=== PATIENT | female | born 1995 | race Caucasian/White ===

== ENCOUNTER 2024-10-28 12:15 | Emergency (ER) | payer OTHER, SELFPAY ==
--- NOTE | 2024-10-28 12:18 | ED.EAR ---
HPI - Ear Problem General Chief complaint: Ear Stated complaint: ears/throat Time Seen by Provider: 10/28/24 12:32 Source: patient and RN notes reviewed Mode of arrival: ambulatory Limitations: no limitations History of Present Illness HPI Narrative: 28-year-old female who is 14 weeks presents with concern for right ear pain, drainage. Reports right-sided sore throat. Denies fever. Denies drainage from the ears. Denies cough MD Complaint: ear pain Related Data Allergies Allergy/AdvReac Type Severity Reaction Status Date / Time No Known Allergies Allergy Verified 10/28/24 12:32 Review of Systems Review of Systems: CONSTITUTIONAL: Denies malaise, chills, sweats, or fever. EYES: Denies visual changes, redness, or discharge. ENT: Denies congestion, sinus pain. Reports right ear pain, right-sided sore throat, postnasal drainage CARDIOVASCULAR: Denies chest pain, palpitations, or edema. RESPIRATORY: Denies cough. Denies dyspnea. GASTROINTESTINAL: Denies abdominal pain, nausea, vomiting, diarrhea SKIN: Denies rash or itching. MUSCULOSKELETAL: Denies myalgia. NEUROLOGIC: Denies headache. All systems reviewed & are unremarkable except as noted in HPI and below PMFSH Comments At time of signature, agree with nursing past medical, surgical, social and family history. There is no relevant family history pertinent to the presenting complaint Exam Narrative: GENERAL: Well-appearing, well-nourished, and in no acute distress. HEAD: Normocephalic EYES: PERRLA, conjunctivae clear ENT: Nares clear, turbinates edematous, clear discharge. Mucous membranes moist. TM pearly breen with dull light reflex bilaterally; no tragal tenderness. Oropharynx not erythematous without lesions. Tonsils not enlarged and without exudate, no drooling, no hoarseness, no trismus, uvula midline. NECK: Supple. No lymphadenopathy CHEST: Clear to auscultation, breath sounds equal. No wheezing, rhonchi, rales, or stridor. No respiratory distress, speaks in full sentences. HEART: Regular rate and rhythm. No murmur heard. SKIN: Warm, dry, no rash. NEURO: Alert and oriented x3. PSYCH: Normal mood and affect Course Course Emergency Course: Patient is aware of diagnosis, understands and agrees to treatment plan. Anticipatory guidance given. Patient agrees to follow-up as directed and is aware of reasons to seek care at the emergency department. Portions of this record may have been created with voice recognition software Level of Care: [facility] Visit Vital Signs Vital signs: Reviewed. Medical Decision Making MDM Narrative Medical decision making narrative: I evaluated this in the [facility]. History is obtained from patient who is an independent historian and physical exam was performed.? Available medical records were reviewed. ? Exam findings and relevant testing show no acute concerns or changes; patient is non-toxic appearing and is in no distress. Differential diagnosis considered: Siddiqui virus, strep pharyngitis, allergic rhinitis, upper respiratory tract infection, sinusitis, rhinosinusitis, nasopharyngitis. viral pharyngitis, otitis media, otitis externa, otitis effusion, cerumen impaction, foreign body. Exam findings show no acute concerns or changes; patient is non-toxic appearing and is in no distress. Patient is appropriate for outpatient treatment and follow-up. ? Differential diagnosis and treatment plan were discussed with the patient. Patient agrees with discussion and after shared medical decision making agrees with plan of care. All questions were answered to the patient's satisfaction. Patient is appropriate for outpatient treatment and follow-up. Critical Care Time Critical Care Time Critical Care Time: No Discharge Plan Discharge Clinical Impression: Upper respiratory infection Patient Disposition: Home, Self-Care Condition: Stable Instructions: Upper Respiratory Infection (ED) Additional Instructions: Your rapid strep swab was negative today at [facility]. A throat culture will be sent to the laboratory for further testing. If the test is positive, you will receive a phone call within 48 hours and an appropriate antibiotic will be initiated at that time. Your symptoms are likely due to a viral illness, which is not treated with antibiotics. Viral symptoms can be present for up to a few weeks. -take Tylenol per package directions for fever or pain. -Antihistamine medication such as Benadryl at night and Zyrtec during the day can help improve symptoms. -Eat and drink things that are easy to swallow, like tea or soup, or popsicles to suck on. -Oral rinses such as: Salt water gargles and/or may use topical anesthetic (eg. Chloraseptic spray) or lozenges to relieve dryness or throat pain). -Frequent hand washing or hand fish machine feeder is one of the best ways to prevent spread of infection. -Follow up with primary care provider in 2-3 days if condition is not improving; or seek ER visit if you have trouble breathing, cannot drink enough fluids, have muffled voice, difficulty opening your mouth, or severe swelling. Prescriptions: New fluticasone propionate [Flonase Allergy Relief] 50 mcg/actuation spray,suspension 2 spray NASAL DAILY 14 Days Qty: 15.8 0RF Rx Instructions: administer into each nostril Follow-up/Referrals: UNKNOWN,DOCTOR [Non-Staff] - Stand Alone Forms: Work/School Release IP Time of Disposition: 12:52
[2024-10-28 12:22] VITALS: BP 128/80; PULSE 107; RESP 16; TEMP 37.3; O2SAT 100
[2024-10-28 13:00] LABS: EDSTREPNEGPOS1 Negative (Negative)
== END 2024-10-28 12:57 | disposition home or self-care (01) ==
PROVIDERS: Emergency Provider Nurse Practitioner
DX: O99.512 Diseases of the respiratory system complicating pregnancy, second trimester (principal); Z3A.14 14 weeks gestation of pregnancy; J06.9 Acute upper respiratory infection, unspecified
CPT/HCPCS: 87081; 87880; 99203; G0463

== ENCOUNTER 2024-12-13 12:52 | Emergency (ER) | payer OTHER, SELFPAY ==
--- NOTE | 2024-12-13 12:56 | ED_ITS ---
HPI - URI/Sore Throat General Chief Complaint: Upper Respiratory Infection Stated Complaint: throat Time Seen by Provider: 12/13/24 12:56 Source: patient, RN notes reviewed and old records reviewed Mode of arrival: ambulatory Limitations: no limitations History of Present Illness HPI Narrative: 29 year old female presents to [facility] care with complaints of sore throat, hoarseness,dry cough, fevers, body aches, chills with decreased appetite since Thursday. Patient reports that she is 20 weeks has taken Tylenol but no other OTC medications since she didn't known what else is safe with . Patient reports that son and spouse are also ill. MD elicited complaint: fever, cough, sore throat and other (body aches) Onset (ago): day(s) (4) Severity: moderate Able to tolerate fluids by mouth: Yes Treatments prior to arrival: acetaminophen Related Data Allergies Allergy/AdvReac Type Severity Reaction Status Date / Time No Known Allergies Allergy Verified 10/28/24 12:32 Review of Systems Review of Systems: CONSTITUTIONAL:Reports malaise, chills, sweats, or fever. EYES: Denies visual changes, redness, or discharge. ENT: Reports rhinorrhea, congestion, sinus pain,no otalgia and positive for sore throat and hoarseness. CARDIOVASCULAR: Denies chest pain, palpitations, or edema. RESPIRATORY: Reports dry cough.? Denies dyspnea. GASTROINTESTINAL: Denies abdominal pain, some nausea, no vomiting, no diarrhea, decreased appetite SKIN: Denies rash or itching. MUSCULOSKELETAL: reports myalgia. NEUROLOGIC: Denies headache. All systems reviewed & are unremarkable except as noted in HPI and below PMFSH Past Medical History Medical History (Updated 12/14/24 @ 11:06 by Valerie Christensen NP) 20 weeks gestation of Social History Social History (Updated 12/14/24 @ 11:08 by Valerie Christensen NP) Smoking status: Unknown if ever smoked Alcohol intake: former Alcohol use details: is former social alcohol use Substance use type: does not use Living arrangements: with family Gender identity (if verbalized by the patient): Female Comments At time of signature, agree with nursing past medical, surgical, social and family history. There is no relevant family history pertinent to the presenting complaint Exam Narrative: GENERAL: Well-appearing, well-nourished, and in no acute distress. HEAD: Normocephalic EYES: PERRLA, conjunctivae clear ENT: Nares clear, turbinates edematous and erythematous, clear discharge. Mucous membranes moist. TM pearly breen with dull light reflex bilaterally; no tragal tenderness. Oropharynx erythematous without lesions. Tonsils not enlarged and without exudate, no drooling, + hoarseness, no trismus, uvula midline.post nasal drainage NECK: Supple. No lymphadenopathy CHEST: Clear to auscultation, breath sounds equal. No wheezing, rhonchi, rales, or stridor. No respiratory distress, speaks in full sentences.dry couchSAO2 99% on room air HEART: Regular rate and rhythm. No murmur heard. SKIN: Warm, dry, no rash. NEURO: Alert and oriented x3. PSYCH: Normal mood and affect Course Course Emergency Course: Patient is aware of diagnosis, understands and agrees to treatment plan.? Anticipatory guidance given.? Patient agrees to follow-up as directed and is aware of reasons to seek care at the emergency department. Portions of this record may have been created with voice recognition software Level of Care: Express Care Visit Vital Signs Vital signs: Vital Signs Temperature 37.6 C H 12/13/24 13:00 Pulse Rate 115 H 12/13/24 13:00 Respiratory Rate 20 12/13/24 13:00 Blood Pressure 116/76 12/13/24 13:00 Pulse Oximetry 99 12/13/24 13:00 Oxygen Delivery Room Air 12/13/24 13:00 Temperature 37.6 C H 12/13/24 13:00 Pulse Rate 115 H 12/13/24 13:00 Respiratory Rate 20 12/13/24 13:00 Blood Pressure 116/76 12/13/24 13:00 Pulse Oximetry 99 12/13/24 13:00 Oxygen Delivery Room Air 12/13/24 13:00 Reviewed MDM - URI/Sore Throat MDM Narrative Medical decision making narrative: Differential diagnosis considered: Siddiqui virus, strep pharyngitis, allergic rhinitis, upper respiratory tract infection, sinusitis, rhinosinusitis, nasopharyngitis. viral pharyngitis, otitis media, otitis externa, pneumonia, bronchitis, viral cough syndrome, viral syndrome, and influenza.? Exam findings show no acute concerns or changes; patient is non-toxic appearing and is in no distress.? Patient is appropriate for outpatient treatment and follow-up. Differential Diagnosis Differential diagnosis: Likely upper respiratory infection, sinusitis, viral infection, influenza, pharyngitis and other (strep pharyngitis, COVID) Lab Data Attestation: I reviewed the patient's lab results. Lab results narrative: strep screen negative, culture sent, Influenza A negative, Influenza B negative, COVID antigen positive Labs: Lab Results 12/13/24 Range/Units 13:06 POC Influenza A Ag Negative (Negative) POC Influenza B Ag Negative (Negative) POC SARS CoV-2 Ag Positive (Negative) POC Grp A Strep Screen Negative (Negative) Critical Care Time Critical Care Time Critical Care Time: No Discharge Plan Discharge Clinical Impression: COVID-19 Patient Disposition: Home, Self-Care Condition: Stable Instructions: Antibiotic Form, How to Recover from COVID-19 at Home (ED) Additional Instructions: Increase fluids especially juices and water [id number] cough and cold medicine of your choice for your symptoms Zyrtec or Claritin daily for any congestion Tylenol only for pain or any fevers heat to the face 20-30 minutes 4-6 times a day for pain Salt water gargles, throat lozenges or throat sprays as desired Please notify your NEGATIVE RESTORER that you are COVID positive Must quarantine If your symptoms persist, change or worsen significantly before you can contact your personal physician then please, without delay, go to the emergency department for further evaluation. Follow-up with PCP in 7-10 days or sooner if needed COVID-19 DISCHARGE The following recommendations have been made by the CDC and local Health Departments, regarding COVID-19: Those individuals with mild cases of COVID-19 can generally be discontinued from isolation, 5 days AFTER the onset of symptoms AND the resolution of fever for 24hrs (without the use of fever-reducing medications) Those individuals who were asymptomatic, and tested positive, are discontinued from isolation 10 days AFTER their first positive COVID-19 test Those individuals with SEVERE to CRITICAL illness or immunocompromised diseases may require up to 20 days of home isolation or hospitalization Majority of mild to moderate cases can be treated at home, without hospitalization or prescription medications You do not need a negative test result to return to work/school, assuming the above recommendations have been met and you are not symptomatic. At this time, return to work/school notes will not be provided. Guidelines from the local Health Department, CDC, and workplace are expected to be followed. All individuals in the household need to remained quarantined for up to 14 days if asymptomatic OR 10 days after the start of symptoms. Everyone in the home DOES NOT require testing, they are presumed positive and should quarantine as directed. Treating symptoms for mild to moderate cases may include: Tylenol, Flonase/nasal spray, OTC cold/flu medications recommended from your provider or any necessary prescription medications provided at your visit or from your PCP IF YOU TESTED NEGATIVE If you are symptomatic with reason to believe you have COVID-19, there is a high possibility your rapid test may not have detected the virus. Rapid testing is dependent on timing and viral load and may have a false- negative reading You should follow appropriate guidelines regarding quarantine, hand washing, mask wearing, and social distancing You may be sent for PCR testing as an outpatient to the [facility] site Common Adult Symptoms: Fever/chills Cough Shortness of breath Fatigue, muscle aches Headache Loss of taste/smell Sore throat, congestion, runny nose GI symptoms (nausea, vomiting, diarrhea) Common Pediatric Symptoms Cough Fever GI symptoms (diarrhea, upset stomach, nausea, vomiting) Symptoms may differ in severity however, most cases do not require hospitalization. WHEN TO SEEK ER EVALUATION/TREATMENT Severe/persistent shortness of breath or difficulty breathing Elevated, persistent fevers without resolution with fever-reducing medications Chest pain Extreme fatigue/lethargy Complications of pre-existing disease strep culture sent if positive you will be notified and appropriate antibiotic will be ordered Patient Language: Congolese Prescriptions: No Action fluticasone propionate [Flonase Allergy Relief] 50 mcg/actuation spray,suspension 2 spray NASAL DAILY 14 Days Qty: 15.8 0RF Rx Instructions: administer into each nostril Follow-up/Referrals: PHYSICIAN,SENIOR OPERATIONS ANALYST [Primary Care Provider] - Time of Disposition: 13:33 Quality [place] Coma Scale Eyes: Open Verbal: Oriented and Alert Motor: Follows Commands Kendy Coma Total Score: 15
[2024-12-13 13:00] VITALS: BP 116/76; PULSE 115; RESP 20; TEMP 37.6; O2SAT 99
[2024-12-13 13:27] LABS: EDCOVIDSCREEN Positive (Negative); EDINFLUASCREEN Negative (Negative); EDINFLUBSCREEN Negative (Negative); EDSTREPNEGPOS1 Negative (Negative)
== END 2024-12-13 13:35 | disposition home or self-care (01) ==
PROVIDERS: Emergency Provider Registered Nurse
DX: O98.512 Other viral diseases complicating pregnancy, second trimester (principal); U07.1 COVID-19; Z3A.22 22 weeks gestation of pregnancy
CPT/HCPCS: 87081; 87426; 87804; 87880; 99213; G0463

== ENCOUNTER 2025-04-15 22:50 | Observation (INO) | payer OTHER, SELFPAY ==
[2025-04-16 01:27] VITALS: BMI 37.8
--- OUTSIDE RECORDS SUMMARY | 2025-04-16 01:27 | XMS_ITS | Clinical Summary ---
Author Organization [facility] Address [address] [place] [address] Care Team Providers Care Paper Roll Machine Operator Name Role Phone No, Physician Primary Care Provider [phone] Derrick Abdalla MD Unavailable Allergies Active Allergy Reactions Criticality Noted Date Comments Isopropyl Alcohol Hives Medium 11/25/2017 Medications docusate sodium (COLACE) 100 mg capsuleIndicati ons:constipatio n Take 100 mg by mouth 2 (two) times a day Active HYDROcodone-vikas taminophen (NORCO) 5-325 mg per tabletIndicatio ns:Pain Take 1 tablet by mouth every 4 (four) hours as needed for pain 20 tablet 1 Active Additional Information Patient not taking.Reported on 10/15/2022 ibuprofen (ADVIL,MOTRIN) 600 mg tabletIndicatio ns:Cramps Take 1 tablet (600 mg total) by mouth every 6 (six) hours as needed for pain 30 tablet 1 1 Active Additional Information Patient not taking.Reported on 10/15/2022 etonogestreL-et hinyl estradioL (NUVARING, ELURYNG) 0.12-0.015 mg/24 hr vaginal ring 2 Active Active Problems Problem Noted Date Diagnosed Date Mild intermittent asthma 03/16/2021 Acute gastroenteritis 04/16/2019 Multiple insect bites 01/01/2019 Mixed anxiety and depressive disorder 01/21/2017 Immunizations Immunization Administration Dates Next Due Influenza, Unspecified 08/27/2021 MMR 11/10/2021 Surgical History Surgery Date Site/Laterality Comments TONSILLECTOMY MYRINGOTOMY W/ TUBES Medical History Medical History Date Comments UTI (urinary tract infection) Asthma last attack over a year ago Mental disorder anxiety and depr ession not on any meds Social History Tobacco Use Types Packs/Day Years Used Date Smoking Tobacco: Former Smokeless Tobacco: Never Tobacco Cessation:Counseling Given: Not Answered Alcohol Use Standard Drinks/Week Comments Yes 0 (1 standard drink = 0.6 oz pur e alcohol) SOCIALLY AUDIT-C Answer Date Recorded Q1: How often do you have a drink containing alc ohol? 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 Gender Identity Not on file Sexual Orientation Not on file Obstetrics History Para Term AB IAB SAB Ectopic Multiple Livin g Live Births 1 1 1 0 1 1 Date Outcome GA Total Labor Labor/2nd/3rd Weight Sex Type Anes PTL Winnie A1 A5 Name Clin 2020 Term 39w 4d 7h 13m 6h 32m/0h 39m/0h 02m 3.895 kg (8 lb 9.4 oz) M Vag-S pont Epidur al N Livin g 8 9 RITTE R,BOY MARJORIE ANY Hardma n, Derrick cameron MD Complications:None Delivery Location:[facility] ([facility]) Last Filed Vital Signs Vital Sign Reading Time Taken Comments Blood Pressure 106/64 02/04/2024 2:59 PM CDT Pulse 105 02/04/2024 2:59 PM CDT Temperature 36.6 C (97.8 F) 02/04/2024 2:59 PM CDT Respiratory Rate 16 02/04/2024 2:59 PM CDT Oxygen Saturation 99% 02/04/2024 2:59 PM CDT Inhaled Oxygen Concentration - - Weight 61.2 kg (135 lb) 02/04/2024 2:59 PM CDT Height 162.6 cm (5' 4) 02/04/2024 2:59 PM CDT Body Mass Index 23.17 02/04/2024 2:59 PM CDT Plan of Treatment Health Maintenance Due Date Last Done Comments Cervical Cancer Screening 1997 Depression Screening 1997 Hepatitis C Screening 1997 DTaP/Tdap/Td Vaccine (1 - Tdap) 2008 Varicella Vaccines (1 of 2 - 13+ 2-dose series) 2010 Hepatitis B Screening 2015 Regular Well Visit/Exam 18-64 2015 Pneumococcal vaccine <65 (1 of 2 - PCV) 2016 Influenza Vaccine (Season Ended) 2025 08/27/20 21 HPV Vaccines Aged Out No longer eligi ble based on patient's age to complete this topic Insurance [facility] CHOICE PLUS [facility] HMO/PPO Address: [facility] [address] [place] [address] Advance Directives For more information, please contact: [phone] * Full Code (Latest Code Status on File) Date Activated Date Inactivated Comments 11/09/2021 1:03 AM 11/10/2021 7:23 PM * Full Code Date Activated Date Inactivated Comments 11/08/2021 5:52 AM 11/09/2021 1:03 AM Full CPR i n case of cardiopulmonary arrest Care Teams Paper Roll Machine Operator Relationship Specialty Start Date End Date No, Physician PCP - General 03/16/21 Derrick Abdalla MD [address] [address] [address] Family Counselor Obstetrics and Gynecology 11/10/21
--- OUTSIDE RECORDS SUMMARY | 2025-04-16 01:27 | XMS_ITS | Referral Summary ---
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 Gender Identity Not on file Sexual Orientation Not on file Last Filed Vital Signs Vital Sign Reading [...] 02/04/2024 2:59 PM CDT Plan of Treatment Not on file Insurance [facility] CHOICE PLUS Advance Directives For more information, please contact: [phone] * Full Code (Latest Code Status on File) Date Activated Date Inactivated Comments 11/09/2021 1:03 AM 11/10/2021 7:23 PM * Full Code Date Activated Date Inactivated Comments 11/08/2021 5:52 AM 11/09/2021 1:03 AM Full CPR i n case of cardiopulmonary arrest Care Teams Audio Recording Engineer Relationship Specialty Start Date End Date No, Physician PCP - General 03/16/21 Derrick Abdalla MD [address] [facility] [address] [address] [address] [address] Catalytic Converter Operator Obstetrics and Gynecology 11/10/21
--- NOTE | 2025-04-21 11:52 | PM.OBTRLD ---
OB - Triage/Final Diagnosis Visit Information Comments/Additional reasons for admission: I have assessed the risk for this patient, Andie Morrison, and determined that she would benefit from observation care. Final Diagnosis (1) Threatened labor: Code(s): O47.9 - False labor, unspecified Status: Acute
== END 2025-04-16 01:45 | disposition home or self-care (01) ==
PROVIDERS: Admitting Provider Obstetrics & Gynecology; Visit Provider Obstetrics & Gynecology
DX: O47.1 False labor at or after 37 completed weeks of gestation (principal); Z3A.37 37 weeks gestation of pregnancy
CPT/HCPCS: G0378; G0379

== ENCOUNTER 2025-04-19 16:06 | Outpatient (CLI) | payer OTHER, SELFPAY ==
[2025-04-19 17:02] VITALS: BP 118/77; PULSE 104
--- NOTE | 2025-04-19 17:02 | PC.NURSE ---
Dr. Grady informed ROM plus was negative, SVE 1 cm externally- didn't try to reach internal os, thick, -3 station. FHT's with reactive NST. OK to discharge to home.
--- OUTSIDE RECORDS SUMMARY | 2025-04-19 17:12 | XMS_ITS | Clinical Summary ---
Author Organization [facility] Address [address] [place] [address] Care Team Providers Care Actuarial Consultant Name Role Phone Provider, None Primary Care Provider Unavailabl e Provider, None Unavailable Unavailable Allergies Active Allergy Reactions Criticality Noted Date Comments Isopropyl Alcohol Hives 11/25/2017 Medications No known medications Active Problems No known active problems Immunizations Immunization Administration Dates Next Due Influenza Vaccine, Quadrivalent, PF 08/27/2021 Social History Tobacco Use Types Packs/Day Years Used Date Smoking Tobacco: Former Cigarettes Smokeless Tobacco: Never Alcohol Use Standard Drinks/Week Comments Not Currently 0 (1 standard drink = 0.6 oz pur e alcohol) Sexually Active Control Partners Comments Yes Male Comments Unknown Sex and Gender Information Value Date Recorded Sex Assigned at Not on file Legal Sex Female 3:29 PM CUSTOMS AGENT Gender Identity Not on file Sexual Orientation Not on file Last Filed Vital Signs Vital Sign Reading Time Taken Comments Blood Pressure 102/64 08/27/2021 9:20 AM CDT Pulse 119 08/27/2021 9:20 AM CDT Temperature 36.4 C (97.5 F) 08/27/2021 9:20 AM CDT Respiratory Rate 18 08/27/2021 9:20 AM CDT Oxygen Saturation 100% 08/27/2021 9:20 AM CDT Inhaled Oxygen Concentration - - Weight 65.8 kg (145 lb) 11/25/2017 7:07 PM CUSTOMS AGENT Height 162.6 cm (5' 4) 11/25/2017 7:07 PM CUSTOMS AGENT Body Mass Index 24.89 11/25/2017 7:07 PM CUSTOMS AGENT Plan of Treatment Health Maintenance Due Date Last Done Comments Hepatitis C Virus (HCV) Screening 1997 TdaP Immunization 1997 Hepatitis B Immunization (1 of 3 - 19+ 3-dose series) 2016 Pap Smear 2018 Influenza Immunization (#1) 2024 08/27/2021 SARS-COV-2 Immunization (1 - 2023- season) 2024 Respiratory Syncytial Virus (RSV) Immunization (Adult) (1 - 1-dose 75+ series) 2072 Meningococcal Immunization (ACWY) Aged Out No longer eligible based on patient's age to complete this topic Pneumococcal Immunization Combined Aged Out No longer eligible based on patient's age to complete this topic Rotavirus Immunization Aged Out No lo nger eligible based on patient's age to complete this topic Insurance [facility] MEDICAID [place] Care Teams Actuarial Consultant Relationship Specialty Start Date End Date Provider, None [place] PCP - General 12/08/24 Provider, None [place] 12/08/24
--- OUTSIDE RECORDS SUMMARY | 2025-04-19 17:12 | XMS_ITS | Clinical Summary ---
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 Gender Identity Not on file Sexual Orientation [...] n, Derrick cameron MD Complications:None Delivery Location:This [facility] ([facility]) Last Filed Vital Signs [...] patient's age to complete this topic Insurance [facility] CHOICE PLUS [facility] H[facility]/PPO Address: [facility] [address] [place] [address] Advance Directives For more information, please contact: [phone] * Full Code (Latest Code Status on File) Date Activated Date Inactivated Comments 11/09/2021 1:03 AM 11/10/2021 7:23 PM * Full Code Date Activated Date Inactivated Comments 11/08/2021 5:52 AM 11/09/2021 1:03 AM Full CPR i n case of cardiopulmonary arrest Care Teams Bottle And Glass Inspector Relationship Specialty Start Date End Date No, Physician PCP - General 03/16/21 Derrick Abdalla MD 4 [facility] [address] TONEY B [address] [address] Printing Plate Maker Obstetrics and Gynecology 11/10/21
--- OUTSIDE RECORDS SUMMARY | 2025-04-19 17:12 | XMS_ITS | Clinical Summary ---
Author Organization [facility] Address [address] [place] [address] Care Team Providers Care Rn Plastics Name Role Phone Unavailable Primary Care Provider Unavailabl e Source Comments [facility],non-owned Affiliates and Associated Physician Practices is amultiple site organization consisting of ambulatory clinics and hospital sitesin [place], [place], [place] and [place]. This disclosure is being madepursuant to the Care Everywhere program and may not contain all information available regarding this patient. Last updated 18.[facility] Allergies No known active allergies Encounters Date Type Department Care Team Description 04/14/2025 8:43 AM CDT - 04/14/2025 11:59 PM CDT Hospital Encounter Replaced by [facility] [address] [place] [id number] Lit Matthew DO MODEL HOME SALES GREETER Discharge Disposition: Home or Self Care 04/05/2025 10:20 AM CDT - 04/05/2025 11:59 PM CDT Hospital Encounter Replaced by [facility] [address] [place] [id number] Kevin Pollock MD Discharge Disposition: Home or Self Care 03/17/2025 8:48 AM CDT - 03/17/2025 11:59 PM CDT Hospital Encounter Replaced by [facility] [address] [place] [phone] James Swartz MD Discharge Disposition: Home or Self Care from Last 3 Months Social History Tobacco Use Types Packs/Day Years Used Date Smoking Tobacco: Never Assessed Estimated Date of Delivery Comme nts Yes 04/29/2025 Based on Ultraso und Sex and Gender Information Value Date Recorded Sex Assigned at Not on file Legal Sex Female 9:06 AM CDT Gender Identity Not on file Sexual Orientation Not on file Last Filed Vital Signs Vital Sign Reading Time Taken Comments Blood Pressure 120/82 04/14/2025 10:14 AM CDT Pulse 106 04/14/2025 10:14 AM CDT Temperature - - Respiratory Rate - - Oxygen Saturation - - Inhaled Oxygen Concentration - - Weight - - Height - - Body Mass Index - - Plan of Treatment Health Maintenance Due Date Last Done Comments PAP SMEAR 1997 HIV SCREENING 2012 HEPATITIS C SCREENING 12/03/2015 DTAP/TDAP/TD VACCINES (1 - Tdap) 2016 HEPATITIS B VACCINE (1 of 3 - 19+ 3-dose series) 2016 COVID-19 VACCINE ( - 2023-2 5 season) 2024 DEPRESSION SCREENING 11/23/2024 OB-ONE HOUR GLUCOSE 01/21/2025 OB-RHOGAM INJECTION 02/04/2025 OB-GROUP B STREP SCREEN 03/25/2025 INFLUENZA VACCINE (Season Ended) 2025 ZOSTER VACCINE (1 of 2) 2047 OB-TDAP CURRENT Completed 03/15/2025 HIB VACCINE Aged Out No longer eligi ble based on patient's age to complete this topic HPV VACCINE Aged Out No longer eligi ble based on patient's age to complete this topic MENINGOCOCCAL (Group B) VACC INE SHARED DECISION-MAKING Aged Out No longer eligibl e based on patient's age to complete this topic MENINGOCOCCAL GROUPS A/C/Y/W VACCINE Aged Out No longer eligible b ased on patient's age to complete this topic PNEUMOCOCCAL VACCINE Aged Out No long er eligible based on patient's age to complete this topic Respiratory Syncytial Virus (RSV) Vaccine Pt: or over 60 yrs (No Doses Required) Completed Procedures Procedure Name Priority Date/Time Associated Diagnosis Comments SONOGRAM - COMPLETE Routine 04/14/2025 9 :13 AM CDT Large for dates affecting management of mother, third trimester, other fetus (HCC) 37 weeks gestation of (HCC) Encounter for screening for macrosomia (HCC) SONOGRAM - COMPLETE Routine 04/05/2025 1 0:18 AM CDT Large for dates affecting management of mother, third trimester, other fetus (HCC) 36 weeks gestation of (HCC) Encounter for screening for macrosomia (HCC) SONOGRAM - COMPLETE Routine 03/17/2025 8 :52 AM CDT Large for dates affecting management of mother, third trimester, other fetus (HCC) with 33 completed weeks gestation (HCC) Encounter for ultrasound to assess growth (HCC) from Last 3 Months Results * SONOGRAM - COMPLETE (04/14/2025 9:13 AM CDT) Only the most recent of3 resultswithin the time period is included. Linked Results Indication ======== Class I obesity, Incomplete anatomy screen LGA fetus, 1-hr GCT = 122 mg/dL on 01/18/2025 Declined genetic testing History ====== OB History 2. Para 1 T1L1 1. live 2020. Gest. age 39 w + 5 d. Sex of child: male Maternal Assessment Physical Exam Height 163 cm, 5 ft 4 in. Weight 99 kg, 219 lb. Initial weight 88 kg, 194 lb. BMI 37.59 kg/m . Initial BMI 33.30 kg/m . Weight gain 11 kg, 25 lb Method ====== Transabdominal ultrasound. View: Suboptimal view: limited by late gestational age ========= [place] . Number of fetuses: 1 Dating ====== Date Details Gest. age JOSÉ MIGUEL Stated JOSÉ MIGUEL 37 w + 6 d 04/29/2025 Previous U/S 10/11/2024 GA, GA 11 w + 3 d 37 w + 6 d 04/29/2025 U/S 04/14/2025 based upon AC, BPD, Femur, HC 38 w + 4 d 04/24/2025 Assigned dating based on ultrasound (GA), selected on 03/17/2025 37 w + 6 d 04/29/2025 General Evaluation Cardiac activity present. FHR 145 bpm. Presentation: cephalic Placenta: Placental site: fundal no previa Umbilical cord: Cord vessels: 3 vessel cord. Insertion site: normal insertion Amniotic fluid: Amount of AF: normal. MVP 7.9 cm. NATALIE 18.2 cm. Q1 4.6 cm, Q2 2.5 cm, Q3 7.9 cm, Q4 3.2 cm Biometry BPD 90.4 mm 36w 4d 38% Hadlock HC 334.2 mm 38w 1d 37% Hadlock AC 374.4 mm 41w 3d >99% Hadlock Femur 74.7 mm 38w 1d 62% Hadlock Humerus 69.3 mm -/- >99% Cheng HC / AC 0.89 Weight Calculation: EFW 3,869 g 94% Hadlock EFW (lb,oz) 8 lb 8 oz EFW by Hadlock ([id number]) LGA Growth Overview Exam date GA BPD (mm) HC (mm) AC (mm) FL (mm) HL (mm) EFW (g) 03/17/2025 33w 6d 82 22% 311.3 38% 328.7 99% 69.3 83% 61.9 96% 2776 92% 04/14/2025 37w 6d 90.4 38% 334.2 37% 374.4 >99% 74.7 62% 69.3 >99% 3869 94% Anatomy The following structures appear normal: Abdomen Stomach. Kidneys. Bladder. The following structures could not be adequately visualized: Head / Neck Lateral ventricles. Midline falx. Heart / Thorax 4-chamber view. 3-vessel view. 6-cfmvlz-fetmdch view. Aortic arch view. Bicaval view. Great vessels. Right lung. Left lung. Abdomen Genitals. Extremities / Skeleton Right hand. Left arm. Feet. Left leg. The following structures were documented previously: Head / Neck Cranium. Choroid plexus. Cavum septi pellucidi. Cerebellum. Cisterna magna. Thalami. Nuchal fold. Face Lips. Profile. Nose. Nasal bone. Orbits. Heart / Thorax RVOT view. LVOT view. Situs. Ductal arch view. Diaphragm. Abdomen Cord insertion. Bowel. Spine Cervical spine. Thoracic spine. Lumbar spine. Sacral spine. Extremities / Skeleton Right arm. Left hand. Right leg. Biophysical Profile 2: breathing movements 2: Gross body movements 2: tone 2: Amniotic fluid volume NST: reactive 10/10 Biophysical profile score Non Stress Test NST interpretation: reactive. Test duration 20 min. Baseline FHR 150 bpm. Baseline variability: moderate. Accelerations: present. Decelerations: absent. Uterine activity: absent Impression ========= Here today for interval growth due to suspected LGA and antental testing due to increased BMI. Single, live, intrauterine at 37w 6d The growth is LGA. The amniotic fluid volume is normal. Normal appearing fundal placenta. The biophysical profile is reassuring /10. No major malformations noted. But the anatomy remains suboptimal due to advanced gestational age and positioning. Comment ======== The biometry showing good interval growth in the estimated weight is suspected LGA. This is most likely constitutional due to the fact that she had negative glucose screen but GDM can not be ruled out with certainty. Overall reassuring status BPP 10/10 with normal amniotic fluid volume. Attempt to complete the anatomical survey showed no gross abnormalities however certain structures remains suboptimally visualized due to advanced gestation positioning which limited the overall study. Both ultrasound and screening/testing have their limitations in detecting all congenital anomalies and chromosomal abnormalities/inh erited disorders or genetic syndromes. Follow-up ======== To continue weekly testing until delivery. Labor and preeclampsia precautions along with kick counts. Thank you for allowing us to partake in your patient's care. Coding ====== Procedures 51187: [place] [address]: Biophysical Profile W NST Yohobuy PACS Anatomical Region Laterality Modality Other 04/14/2025 9:13 AM CDT Venu Trinh MD [facility] ORDERABLES Edited Result - Final from Last 3 Months Insurance [facility]
--- OUTSIDE RECORDS SUMMARY | 2025-04-19 17:12 | XMS_ITS | Referral Summary ---
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 Gender Identity Not on file Sexual Orientation [...] Plan of Treatment Not on file Insurance [facility] CHOICE PLUS Advance Directives For more information, please contact: [phone] * Full Code (Latest Code Status on File) Date Activated Date Inactivated Comments 11/09/2021 1:03 AM 11/10/2021 7:23 PM * Full Code Date Activated Date Inactivated Comments 11/08/2021 5:52 AM 11/09/2021 1:03 AM Full CPR i n case of cardiopulmonary arrest Care Teams Mobile Heavy Equipment Operator Relationship Specialty Start Date End Date No, Physician PCP - General 03/16/21 Derrick Abdalla MD [address] [facility] [address] TONEY B [address] [address] Analyst Competitive Intelligence Obstetrics and Gynecology 11/10/21
[2025-04-19 19:46] LABS: OBXCEM ROM Plus Negative (Negative)
== END 2025-04-19 17:05 | disposition home or self-care (01) ==
LOC: ANHOBOP 17:10
PROVIDERS: Visit Provider Obstetrics & Gynecology
DX: O41.8X90 Other specified disorders of amniotic fluid and membranes, unspecified trimester, not applicable or unspecified (principal); Z3A.00 Weeks of gestation of pregnancy not specified
CPT/HCPCS: 59025; 84112

== ENCOUNTER 2025-04-21 14:00 | Outpatient (RCR) | payer OTHER, SELFPAY ==
--- NOTE | 2025-04-10 13:20 | OPREHPOC ---
Outpatient Therapy Plan of Care This is a Multidisciplinary Plan of Care that may contain components documented by all disciplines (PT, OT, and ST.) PT Problem 1 PT Problem #1 Knowledge Deficit PT Goal 1 Goal / Goal Update 1. Patient will perform independent HEP Target Visit 3 PT Problem 2 PT Problem #2 Pain PT Goal 1 Goal / Goal Update 1. Pain no higher than 3/10 with navigating stairs or doing household activities Target Visit 8 PT Problem 3 PT Problem #3 Impaired Functional ADLs PT Goal 1 Goal / Goal Update 1. Patient will report no difficulty lifting a laundry basket Target Visit 8 PT Problem 4 PT Problem #4 Impaired Strength PT Goal 1 Goal / Goal Update 1. Jann hip abduction to 4/5 and painfree to improve gait pattern and reduce pain Target Visit 8
--- NOTE | 2025-04-10 13:20 | PTOPEVAL1 ---
Assessment and note entered by Kelly Tom DPT Evaluation Information Assessment Status Evaluation Diagnosis o26.893, m25.529 Subjective Information Pt is 36 weeks . Reports she is having bilateral hip pain, seems to increase whenever she is laying on her side. Also reports bilateral groin pain with standing, moving, getting out of bed. Difficulty navigating stairs at home and is not doing lifting activities like picking up a laundry basket. Highest pain 6/10 and lowest 0/10. Denies n/t. This is patient's second , first delivery was vaginal without complications. 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 Patient goal: more mobile and more comfortable with daily life Returns to MD in 2 days. Reported Pain Level Pain Score 2: Self Report Assessment PT Clinical Summary The patient is presenting to skilled therapy with bilateral hip and groin pain at 36 weeks . She presents with decreased hip strength and gait impairments as well as tenderness to her pubic symphysis which are contributing to her pain and difficulty with normal activities like navigating stairs or lifting a laundry basket. She will benefit from therapy to address these impairments in order to reduce pain and improve function as her progresses. Plan of Care Interventions Hot Pack/Cold Pack,Manual Therapy,Neuro Re- education,Patient/Caregiver Education,Therapeutic Activities,Therapeutic Exercise PT Services Indicated Yes Treatment Frequency and 1-2 times a week for 6-8 visits or until patient Duration delivers These treatments will address the objective and functional deficits as defined above. The patient will be advanced safely and appropriately in order for the patient to progress towards his/her prior level of function. Additional exercises will be introduced and as well as a comprehensive home exercise program upon discharge, if needed, ?to ensure carryover of functional gains achieved in the clinic. This treatment plan has been reviewed and agreement upon by the patient.
--- NOTE | 2025-05-04 10:14 | PTOPDC ---
Assessment and note entered by Kelly Tom DPT Evaluation Information Assessment Status Discharge - Pt Not Present Diagnosis o26.893, m25.529 Subjective Information - Assessment PT Clinical Summary Patient has self discharged due to being close to her due date. Plan of Care PT Services Indicated No
== END 2025-05-04 13:38 | disposition home or self-care (01) ==
LOC: ANHGOSHPT 14:00
PROVIDERS: Visit Provider Obstetrics & Gynecology
DX: O26.893 Other specified pregnancy related conditions, third trimester (principal); M25.551 Pain in right hip; M25.552 Pain in left hip; Z3A.36 36 weeks gestation of pregnancy
CPT/HCPCS: 97110; 97161; 97530

== ENCOUNTER 2025-04-27 02:20 | Inpatient (IN) | payer OTHER, SELFPAY ==
[2025-04-27] VITALS (215 sets, daily range): BP systolic 101–133; BP diastolic 47–94; PULSE 83–154; RESP 18–20; TEMP 36.6–37.8; O2SAT 80–100
[2025-04-27] MEDS: LACTATED RINGERS 500 ML 999 ML IV CONT (03:05)
--- OUTSIDE RECORDS SUMMARY | 2025-04-27 03:10 | XMS_ITS | Clinical Summary ---
Author Organization [facility] Address [address] [place] [address] Care Team Providers Care Crew Boat Operator Name Role Phone Provider, None Primary Care [...] on file Legal Sex Female 3:29 PM CAB STATION ATTENDANT Gender Identity Not on file Sexual Orientation [...] 65.8 kg (145 lb) 11/25/2017 7:07 PM CAB STATION ATTENDANT Height 162.6 cm (5' 4) 11/25/2017 7:07 PM CAB STATION ATTENDANT Body Mass Index 24.89 11/25/2017 7:07 PM CAB STATION ATTENDANT Plan of Treatment Health Maintenance Due Date [...] patient's age to complete this topic Insurance [facility] MEDICAID [place] Care Teams Crew Boat Operator Relationship Specialty Start Date End Date Provider, None [place] PCP - General 12/08/24 Provider, None [place] 12/08/24
--- OUTSIDE RECORDS SUMMARY | 2025-04-27 03:10 | XMS_ITS | Clinical Summary ---
Author Organization [facility] Address [address] [place] [address] Care Team Providers Care Seismic Survey Assistant Name Role Phone Unavailable Primary Care Provider Unavailabl e Source Comments [facility],non-owned Affiliates and Associated Physician Practices is amultiple site organization consisting of ambulatory clinics and hospital sitesin [place], [place], [place] and [place]. This disclosure is being madepursuant to the Care Everywhere program and may not contain all information available regarding this patient. Last updated 18.[facility] Allergies No known active allergies Encounters Date Type Department Care Team Description 04/14/2025 8:43 AM CDT - 04/14/2025 11:59 PM CDT Hospital Encounter [facility] [address] [place] [phone] Lit Matthew DO CLIENT SERVICE EXECUTIVE Discharge Disposition: Home or Self Care 04/05/2025 10:20 AM CDT - 04/05/2025 11:59 PM CDT Hospital Encounter [facility] [address] [place] [phone] Kevin Pollock MD Discharge Disposition: Home or Self Care 03/17/2025 8:48 AM CDT - 03/17/2025 11:59 PM CDT Hospital Encounter [facility] [address] [place] [phone] James Swartz MD Discharge Disposition: Home or [...] 8 lb 8 oz EFW by Hadlock ([id number]) LGA Growth Overview Exam date GA BPD [...] Heart / Thorax 4-chamber view. 3-vessel view. 6-nzxrsn-wmjogoj view. Aortic arch view. Bicaval view. Great [...] in your patient's care. Coding ====== Procedures 86240: [place] [address]: Biophysical Profile W NST [employer] PACS Anatomical Region Laterality Modality Other 04/14/2025 9:13 AM CDT Venu Trinh MD [facility] ORDERABLES Edited Result - Final from Last 3 Months Insurance [facility]
--- OUTSIDE RECORDS SUMMARY | 2025-04-27 03:11 | XMS_ITS | Referral Summary ---
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 Gender Identity Not on file Sexual [...] Plan of Treatment Not on file Insurance [facility] CHOICE PLUS Member Subscriber Plan / Payer (Ef fective 2023-Present) Name:Andie Morrison Relation to Subscriber:Spouse Name:Hunter Morrison Date of :1996 Address: [address] [place] [address] Payer ID:[id number] (NAIC) Type:[facility] HMO/PPO Address: [address] [address] [place] [address] Advance Directives For more information, please contact: [phone] * Full Code (Latest Code Status on File) Date Activated Date Inactivated Comments 11/09/2021 1:03 AM 11/10/2021 7:23 PM * Full Code Date Activated Date Inactivated Comments 11/08/2021 5:52 AM 11/09/2021 1:03 AM Full CPR i n case of cardiopulmonary arrest Care Teams Anesthetist Relationship Specialty Start Date End Date No, Physician PCP - General 03/16/21 Derrick Abdalla MD [address] [facility] [address] TONEY B [address] [address] Tube Machine Operator Obstetrics and Gynecology 11/10/21
--- OUTSIDE RECORDS SUMMARY | 2025-04-27 03:11 | XMS_ITS | Clinical Summary ---
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 Gender Identity Not on file Sexual Orientation [...] n, Derrick cameron MD Complications:None Delivery Location:This [facility] Last Filed Vital [...] patient's age to complete this topic Insurance [facility] CHOICE PLUS Advance Directives For more information, please contact: [phone] * Full Code (Latest Code Status on File) Date Activated Date Inactivated Comments 11/09/2021 1:03 AM 11/10/2021 7:23 PM * Full Code Date Activated Date Inactivated Comments 11/08/2021 5:52 AM 11/09/2021 1:03 AM Full CPR i n case of cardiopulmonary arrest Care Teams Perlite Grinder Relationship Specialty Start Date End Date No, Physician PCP - General 03/16/21 Derrick Abdalla MD [address] [facility] [address] TONEY B [address] [address] Restaurant Team Member Obstetrics and Gynecology 11/10/21
[2025-04-27 03:23] LABS: Basophils Percent Auto 0.2 % (0.2-1.2); Eosinophils Percent Auto 0.4 % (0-4.4); Hematocrit 35.9 % (37.0-47.0); Hemoglobin 11.1 g/dL (12.0-15.0); Immature Granulocyte Absolute 0.06 K/mm3 (0.00-0.031); Immature Granulocyte Percent A 0.6 % (0-0.5); Lymphocytes Absolute Auto 1.41 K/mm3 (0.9-3.2); Lymphocytes Percent Auto 13.4 % (18.3-44.2); Mean Corpuscular HGB Conc 30.9 g/dl (32-36); Mean Corpuscular Hemoglobin 24.9 pg (26-34); Mean Corpuscular Volume 80.7 fl (80-100); Mean Platelet Volume 10.5 fl (7.4-10.4); Monocytes Absolute Auto 0.8 K/mm3 (0.1-0.6); Monocytes Percent Auto 7.2 % (2.6-8.5); Neutrophils Absolute Auto 8.3 K/mm3 (1.3-6.7); Neutrophils Percent Auto 78.2 % (45.5-73.1); Platelet Count Result 253 k/mm3 (150-375); Red Blood Count 4.45 M/mm3 (4.2-5.4); Red Cell Distribution Width 15.7 % (11.5-14.5); White Blood Count 10.6 K/mm3 (4.5-10.0)
--- NOTE | 2025-04-27 03:23 | LDADM ---
This patient, Andie Morrison, was admitted to Labor/Delivery/Recovery 105 on 04/27/25 at 02:20. Plans for labor, pain management and were discussed with patient. Patient/family oriented to hospital policies and general routines including ID bracelet, bed and alarms, visiting hours, pain management, procedures, bathroom and other care routines, personal items, smoking policy, room service/diet and guest tray routines, infant security routines, and visiting hours. Patient/Family are encouraged to report perceived risks to care and to ask questions if they do not understand what they are told or what they should do. See OBIX for further documentation.
--- NOTE | 2025-04-27 03:55 | P.PNAN_ITS ---
Anes - Eval Pre Procedure Procedure: Labor Epidural Date/Time: 04/27/25 03:55 Surgeon: Miguel A Preop Diagnosis: Labor Pain Pre Op Diagnosis: Contractions Patient Data Age: 29 Gender: F Height: Weight: Last Vital Signs Pulse 98 04/27/25 03:30 BP 119/76 04/27/25 03:30 Pulse Ox 100 04/27/25 03:53 Allergies Allergy/AdvReac Type Severity Reaction Status Date / Time No Known Allergies Allergy Verified 04/27/25 03:39 Home Medications ?Medication ?Instructions ?Recorded ?Confirmed ?Type No Home Medications 04/27/25 04/27/25 History Laboratory Tests 04/27/25 03:17 WBC 10.6 H K/mm3 (4.5-10.0) RBC 4.45 M/mm3 (4.2-5.4) Hgb 11.1 L g/dL (12.0-15.0) Hct 35.9 L % (37.0-47.0) MCV 80.7 fl (80-100) MCH 24.9 L pg (26-34) MCHC 30.9 L g/dl (32-36) RDW 15.7 H % (11.5-14.5) Plt Count 253 k/mm3 (150-375) MPV 10.5 H fl (7.4-10.4) Immature Gran % (Auto) 0.6 H % (0-0.5) Neut % (Auto) 78.2 H % (45.5-73.1) Lymph % (Auto) 13.4 L % (18.3-44.2) Ramsey % (Auto) 7.2 % (2.6-8.5) Eos % (Auto) 0.4 % (0-4.4) Baso % (Auto) 0.2 % (0.2-1.2) Lymph # (Auto) 1.41 K/mm3 (0.9-3.2) Ramsey # (Auto) 0.8 H K/mm3 (0.1-0.6) Eos # (Auto) 0.0 K/mm3 (0-0.3) Baso # (Auto) 0.0 K/mm3 (0.0-0.1) Abs Immat Gran (auto) 0.06 H K/mm3 (0.00-0.031) Absolute Neuts (auto) 8.3 H K/mm3 (1.3-6.7) Absolute Nucleated RBC 0.000 K/mm3 (0.0-0.012) Nucleated RBC % 0.0 % (0.0-0.2) HIV 1&2 Ab/P24 Ag 4thGn Pending Blood Type Pending Antibody Screen Pending : gestational age (, JOSÉ MIGUEL 05/04/25) Patient hx anesthesia problems: none Family hx anesthesia problems: none Results Review: All pre-operative results and documents have been reviewed as part of the pre- operative evaluation. [facility] Past Medical History Medical History Heart palpitations Family history of supraventricular tachycardia H/O headache Anxiety 20 weeks gestation of Family History Family History Mother Depression Mother Thyroid disease Father Alcohol abuse Depression Heart disease Hypertension Grandparent Hypertension Social History Social History Smoking status: Former smoker Second hand tobacco smoke exposure: No Alcohol intake: former Alcohol use details: is former social alcohol use Substance use: former Substance use type: does not use Do You Feel Safe in your Home?: Yes Lack of Transportation: No Lack of Food: Never True Current Housing: I Have Housing Concerned About Future Housing: No Difficulty Paying Gas/Electric Bills: No Difficulty Paying for Meds: No Currently Unemployed: No Education: High School Diploma/GED Difficulty w/ Childcare or Family Care: No Living arrangements: with family Gender identity (if verbalized by the patient): Female Spiritual care concerns: No Exam Day of Procedure 04/27/25 03:55 Patient weight: normal Heart: regular rate and rhythm Lungs: normal air movement Airway: Mallampati scale class II Neurological: alert and oriented
[2025-04-27] MEDS: ONDANSETRON INJ 4 MG/2 ML VIAL IV PUSH ×2 (03:59→15:01)
[2025-04-27 04:14] LABS: HIV 1/2 Ab P24 Ag Result Negative (Negative)
[2025-04-27 04:23] LABS: Syphilis IgG/IgM Antibody Negative (Negative)
--- NOTE | 2025-04-27 06:31 | P.HP_ITS ---
H&P: HPI History of Present Illness Date/Time: 04/27/25 06:31 Chief Complaint: Contractions Narrative: 29 y/o at 39 weeks, admitted in active labor. PNC significant for LGA, unstable lie. Last ultrasound cephalic. Review of Systems Review of Systems: All systems reviewed & are unremarkable except as noted in HPI and below Constitutional: Constitutional: Reports no additional constitutional complaints and Denies headache(s) Eyes: Eyes: Denies spots in vision ENT: Reports system reviewed and no additional complaints, except as documented and Denies headache(s) Cardiovascular: Cardiovascular: Denies chest pain and Denies dyspnea Respiratory: Respiratory: Denies dyspnea Gastrointestinal: Gastrointestinal: Reports no additional gastrointestinal complaints Genitourinary: Genitourinary: Reports amenorrhea Musculoskeletal: Musculoskeletal: Reports no additional musculoskeletal complaints Integumentary/Breasts: Skin/Breast: Denies breast mass and Denies rash Neurologic: Denies headache(s) Psychiatric: Psychiatric: Reports no additional psychiatric complaints [facility] Past Medical History Medical History Heart palpitations Family history of supraventricular tachycardia H/O headache Anxiety 20 weeks gestation of Family History Family History Mother Depression Mother Thyroid disease Father Alcohol abuse Depression Heart disease Hypertension Grandparent Hypertension Social History Social History Smoking status: Former smoker Second hand tobacco smoke exposure: No Alcohol intake: former Alcohol use details: is former social alcohol use Substance use: former Substance use type: does not use Do You Feel Safe in your Home?: Yes Lack of Transportation: No Lack of Food: Never True Current Housing: I Have Housing Concerned About Future Housing: No Difficulty Paying Gas/Electric Bills: No Difficulty Paying for Meds: No Currently Unemployed: No Education: High School Diploma/GED Difficulty w/ Childcare or Family Care: No Living arrangements: with family Gender identity (if verbalized by the patient): Female Spiritual care concerns: No Meds Home Medications and Allergies Home Medications ?Medication ?Instructions ?Recorded ?Confirmed ?Type No Home Medications 04/27/25 04/27/25 History Allergies Allergy/AdvReac Type Severity Reaction Status Date / Time No Known Allergies Allergy Verified 04/27/25 03:39 Vital Signs Vital Signs - 24 hr 04/27/25 03:09 04/27/25 03:14 04/27/25 03:15 Pulse Rate 95 Blood Pressure 125/79 Pulse Oximetry 98 100 04/27/25 03:19 04/27/25 03:25 04/27/25 03:30 Pulse Rate 98 Blood Pressure 119/76 Pulse Oximetry 95 97 04/27/25 03:32 04/27/25 03:38 04/27/25 03:43 Pulse Rate Blood Pressure Pulse Oximetry 98 90 99 04/27/25 03:53 04/27/25 03:56 04/27/25 03:58 Pulse Rate 109 H Blood Pressure 115/85 Pulse Oximetry 100 100 04/27/25 04:01 04/27/25 04:05 04/27/25 04:06 Pulse Rate 89 Blood Pressure 121/71 Pulse Oximetry 99 99 04/27/25 04:08 04/27/25 04:09 04/27/25 04:10 Pulse Rate 89 92 Blood Pressure 123/74 126/86 Pulse Oximetry 98 04/27/25 04:12 04/27/25 04:14 04/27/25 04:15 Pulse Rate 92 105 H Blood Pressure 118/77 117/71 Pulse Oximetry 98 04/27/25 04:17 04/27/25 04:19 04/27/25 04:20 Pulse Rate 105 H 112 H Blood Pressure 120/72 115/66 Pulse Oximetry 98 04/27/25 04:22 04/27/25 04:24 04/27/25 04:25 Pulse Rate 107 H 112 H Blood Pressure 117/73 113/69 Pulse Oximetry 99 04/27/25 04:28 04/27/25 04:29 04/27/25 04:30 Pulse Rate 119 H 102 H Blood Pressure 114/73 119/74 Pulse Oximetry 99 04/27/25 04:32 04/27/25 04:34 04/27/25 04:35 Pulse Rate 109 H 103 H Blood Pressure 122/76 116/72 Pulse Oximetry 99 04/27/25 04:37 04/27/25 04:39 04/27/25 04:40 Pulse Rate 98 101 H Blood Pressure 114/70 110/73 Pulse Oximetry 99 04/27/25 04:42 04/27/25 04:44 04/27/25 04:45 Pulse Rate 94 96 Blood Pressure 117/75 105/69 Pulse Oximetry 100 100 04/27/25 04:47 04/27/25 04:50 04/27/25 04:52 Pulse Rate 99 96 104 H Blood Pressure 109/70 123/73 113/80 Pulse Oximetry 100 04/27/25 04:55 04/27/25 05:00 04/27/25 05:05 Pulse Rate 106 H Blood Pressure 121/73 Pulse Oximetry 100 98 100 04/27/25 05:10 04/27/25 05:15 04/27/25 05:20 Pulse Rate 107 H Blood Pressure 121/72 Pulse Oximetry 99 98 100 04/27/25 05:25 04/27/25 05:30 04/27/25 05:35 Pulse Rate 97 Blood Pressure 118/78 Pulse Oximetry 100 96 100 04/27/25 05:40 04/27/25 05:45 04/27/25 05:50 Pulse Rate 105 H Blood Pressure 114/74 Pulse Oximetry 99 99 99 04/27/25 05:55 04/27/25 06:00 04/27/25 06:05 Pulse Rate 91 Blood Pressure 114/75 Pulse Oximetry 99 95 99 04/27/25 06:10 04/27/25 06:15 04/27/25 06:20 Pulse Rate 95 Blood Pressure 112/70 Pulse Oximetry 100 99 100 04/27/25 06:25 04/27/25 06:30 Pulse Rate 94 Blood Pressure 125/86 Pulse Oximetry 97 98 Exam Const: General: no acute distress Eyes: General: appearance normal, both eyes and all related structures Resp: Effort & Inspection: normal respiratory effort Cardio: Rate: regular rate GI: Other: Gravid no fundal tenderness no right upper quadrant pain Skin: General skin exam: no rashes or lesions noted Neuro: Cognition (Neuro): normal cognition Extrem: General: normal to inspection Psych: Mental Status: mental status grossly normal H&P: Results Labs Labs: Short CBC 04/27/25 Range/Units 03:17 WBC 10.6 H (4.5-10.0) K/mm3 Hgb 11.1 L (12.0-15.0) g/dL Hct 35.9 L (37.0-47.0) % Plt Count 253 (150-375) k/mm3 Assessment and Plan Assessment and plan (1) Active labor: Status: Acute Assessment and Plan: 1. Admit 2. Expectant management
[2025-04-27] MEDS: CALCIUM CARBONATE (TUMS) 500 MG (200 MG ELEMENTAL) PO (06:40)
--- NOTE | 2025-04-27 06:40 | PM.OBPNLAB ---
Pain Control Date/time seen: 04/27/25 06:40 Comments: Cat 2, variable deceleration, cervix 9, high, bedside ultrasound confirmed cephalic presentation. Continue expectant management.
[2025-04-27] MEDS: LACTATED RINGERS 1,000 ML 125 ML IV CONT (07:43)
--- NOTE | 2025-04-27 08:32 | PM.OBPNLAB ---
Pain Control Date/time seen: 04/27/25 08:32 Comments: Cat 2, 8.5, -3, AROM during cervical check, thick meconium, pt aware of meconium and delivery precautions, continue expectant management.
[2025-04-27] MEDS: OXYTOCIN 30 UNITS/NS 500 ML 30 UNITS/500 ML BAG IV CONT (10:28)
--- NOTE | 2025-04-27 14:55 | PM.OBPNVD ---
OB - PN: Subj Subjective Date/time seen: 04/27/25 14:55 Interval history: fht 155, cat 2, cervix ant lip, cont Pitocin. OB - PN: Obj Data Labs 04/27/25 03:17 Labs: Laboratory Results - last 24 hr 04/27/25 03:17 WBC 10.6 H RBC 4.45 Hgb 11.1 L Hct 35.9 L MCV 80.7 MCH 24.9 L MCHC 30.9 L RDW 15.7 H Plt Count 253 MPV 10.5 H Immature Gran % (Auto) 0.6 H Neut % (Auto) 78.2 H Lymph % (Auto) 13.4 L Atkinson % (Auto) 7.2 Eos % (Auto) 0.4 Baso % (Auto) 0.2 Lymph # (Auto) 1.41 Atkinson # (Auto) 0.8 H Eos # (Auto) 0.0 Baso # (Auto) 0.0 Abs Immat Gran (auto) 0.06 H Absolute Neuts (auto) 8.3 H Absolute Nucleated RBC 0.000 Nucleated RBC % 0.0 Syphilis IgG/IgM Ab Negative HIV 1&2 Ab/P24 Ag 4thGn Negative Blood Type A Positive Antibody Screen Negative OB - PN A/P Time Spent With Patient Time: Total time spent is greater than 50% in coordination of care (as documented) at patient's floor/unit and/or counseling patient:
--- NOTE | 2025-04-27 15:31 | S_PTH ---
PATIENT: Andie Morrison LOC: [facility] U#:[id number] AGE/SX: 29/F ROOM: 282 RE04/27/[address]: Kat Marley MD : 1995 BED: 00 DIS: 04/29/2025 SPEC #: [id number] RECD: 04/28/25 07:30 STATUS: TIM REPaul #: [id number] LILIA: 04/27/25 15:[address]: Venu Grady DEPT: [facility] Surgical RECD BY: Mariangel Angela ENTERED: 04/28/25 07:31 SP TYPE: Surgical OTHR DR: UNKNOWN,DOCTOR Tissues: A - Placenta Procedures: Hematoxylin and Eosin Stain Gross and Microscopic Level 5
--- NOTE | 2025-04-27 15:56 | P.PCNOB_ITS ---
OB - Vaginal Delivery Note Procedure Delivery date: 04/28/25 Events: Other (lga) Delivery augmentation: Rupture of Membranes and Pitocin Delivery monitor: External FHT and Internal Uterine Route of delivery: Episiotomy description: None Specimen: Yes (placenta and cord) Quantitative Blood Loss (ml): 250 Anesthesia type: Epidural Disposition: Floor Complications: Other complications (mild shoulder dystocia) Narrative: Admitted in labor. tracing showed intermittent variable decelerations. She dilated to 8cm, and position high. Pitocin was started. She had SROM thick meconium when checking her cervix. She progressed to 9 cm. She had protracted active phase and some swelling of cervix. Pitocin started. IUPC placed. She progressed to complete. She had a temp of 100.6 with pushing. She delivered a male , nose mouth suctioned with bulb. Two loose nuchal cords manually reduced. Mild shoulder dystocia approximately 30 sec, relieved with modified Zhanna and suprapubic pressure. The infant was delivered. Cord doubly clamped and cut and infant taken to warmer. Peds present. Cord blood and cord gases obtained. Placenta delivered spontaneously and intact. No lacerations. Patient tolerated procedure well. [place] Baby Date of : 04/27/25 Time of : 15:24 Gestational Age by Date: 39 Infant gender: Male presentation: vertex position: Right Occiput Anterior Placenta delivery description: Spontaneous Cord Vessel Description: 3 Vessels, Nuchal Cord (x2), Loose and Reduced (manually reduced)
[2025-04-27] MEDS: OXYTOCIN 30 UNITS/NS 500 ML 30 UNITS/500 ML BAG 125 UNITS IV CONT (15:58)
[2025-04-27] MEDS: ACETAMINOPHEN 325 MG TABLET 650 MG PO (16:17)
[2025-04-27] MEDS: WITCH HAZEL 40 PADS 1 PAD TOPICAL (17:50)
[2025-04-27] MEDS: IBUPROFEN 600 MG TABLET PO (20:45)
[2025-04-28 04:52] LABS: Hematocrit 35.1 % (37.0-47.0); Hemoglobin 10.8 g/dL (12.0-15.0)
[2025-04-28 07:15] VITALS: BP 117/82; PULSE 95; RESP 16; TEMP 36.9; O2SAT 99
[2025-04-28] MEDS: IBUPROFEN 600 MG TABLET PO ×2 (08:19→14:22)
[2025-04-28] MEDS: MULTIVIT/MIN/PREN/FOL AC/IRON TABLET 1 TAB PO (08:19)
--- NOTE | 2025-04-28 08:20 | PC.NURSE ---
Introductions were made, then consulted with patient to assess needs related to . Discussed with mother her plans to feed her and the experience so far. She asks if feeding is 'supposed to hurt this much'. Patient states that the last feeding was painful throughout and is encouraged to call out at the next feeding time for positioning and latch assistance. Resources provided for inpatient and outpatient services with the feeding sheet, mom/baby guide and name written on the communication board. Mother voiced understanding of information and will call if there is a request for assistance. Reported to the Primary RN.?
--- NOTE | 2025-04-28 10:00 | PC.NURSE ---
Mother requested assistance with waking baby. Advised she undress and unswaddle him and place him skin to skin. She worries he will be to cold and she was educated on benefits of skin to skin. Observed mother latching to the [right] breast in [football] position with the nipple shield. She states that it is 'pretty painful'. Infant [was / ] able to maintain an appropriate latch. We removed the shield and attempted a deeper latch. Mom holds baby far from the breast and attempts to elicit an open mouth. Encouraged her to bring baby close and touch his lip with her nipple so that he knows it is time to latch. Mother [complains of] nipple pain/discomfort [with initial latch on]. She does state that it is less painful than the latch with the shield. We attempted for about 5 minutes and baby gave some good suckles and did maintain the deeper latch well. Mom moves the breast around and pulls the nipple out of baby's mouth while attempting to see his lips. Encouraged her to keep him head very close to the breast throughout the feeding. We will work on the left breast later and patient requests assistance with her Spectra pump. Reviewed using the blue feeding sheet to record time and duration of feeding. Mother voiced understanding of the education shared, to call for assistance if the infant does not latch or if there is discomfort with . name/number on communication board. Reported to the Primary RN.?
[2025-04-28 12:16] VITALS: BP 123/76; PULSE 88; RESP 16; TEMP 36.8; O2SAT 99
--- NOTE | 2025-04-28 14:43 | WPDANLDPN2 ---
Anes-Prog Note L&D Date/Time: 04/28/25 14:43 Comfortable throughout: labor and delivery Neuraxial method: epidural Epidural/Spinal procedure site: clean & non-tender Neuro status: Neuro function grossly intact. Cardiovascular status: normal Respiratory status: normal Airway patency: baseline Mental status: baseline Vital Signs: Last Vital Signs Temp 36.8 C 04/28/25 12:16 Pulse 88 04/28/25 12:16 Resp 16 04/28/25 12:16 BP 123/76 04/28/25 12:16 Pulse Ox 99 04/28/25 12:16 O2 Del Method Room Air 04/27/25 20:59 Pain score (VAS): 0 I/O: Intake & Output 04/27/25 04/28/25 04/28/25 23:59 07:59 15:59 Intake Total 500 Balance 500 Patient feedback: Patient satisfied with anesthetic care.
[2025-04-28] MEDS: DOCUSATE SODIUM 100 MG CAPSULE PO (17:12)
[2025-04-28 19:30] VITALS: BP 123/85; PULSE 81; RESP 18; TEMP 36.5; O2SAT 99
--- NOTE | 2025-04-29 06:25 | PM.OBDSVD ---
DS: Admitting Diagnosis Discharge Date 04/29/25 Admitting Diagnosis Labor DS: Discharge Diagnosis Discharge Diagnosis (1) Vaginal delivery: Code(s): O80 - Encounter for full-term uncomplicated delivery Status: Acute OB - DS: Summary Hospital Course Hospital Course: She was admitted in labor. She had a vaginal delivery. She did well . She was ambulating well, tolerating regular diet. Baby was doing well. She was discharge to home on day 2. OB Procedures : NST and Ultrasound OB Procedures Intrapartum: Spontaneous Vag Delivery OB Procedures: : None Peripartum Data Delivery Method: Natural Vaginal Laceration Description: None Episiotomy description: None complications: none Status at Discharge Functional status at discharge: independent ambulation Time Spent with Patient Time attestation: Total time spent providing and/or coordinating discharge services: Exam Const: General: cooperative Orientation/consciousness: oriented to person, oriented to place and oriented to time HENMT: Face/Nose/Sinus: Normal external nose present Eyes: General: appearance normal, both eyes and all related structures Resp: Effort & Inspection: normal respiratory effort GI: Inspection: normal to inspection Skin: General skin exam: normal color Neuro: General: oriented to person, oriented to place and oriented to time Extrem: General: normal to inspection and no calf tenderness Psych: Appearance: grossly normal Mental Status: mental status grossly normal DS: Data Data Completed and Pending Pending studies at discharge: Pending at discharge 04/27/25 15:31 Surgical [PTH] Routine Discharge Plan Discharge Attending physician on discharge: Venu Grady Consulting providers: Perri Crespo Discharging Clinician: Kat Marley Anticipated Discharge Date/Time: 04/29/25 10:00 Patient Disposition: Home Activity: may shower and pelvic rest Diet: regular Discharge Instructions: Education: Mom and Baby Guide Given to: Mother Follow-Up: Call your delivering provider's office for an appointment to be seen in: Call Dr. Grady's office for follow up appointment. Mom and baby should come to the [facility] for the follow-up appointment. Appointment Date/Time: May 01, 2025 at 11:00 am What to expect at your follow-up visit: Call [phone] if you are unable to keep your appointment time. BREAST CARE: * Wear a snug supportive bra. * For engorgement discomfort: Breast Feeding: * Apply warm moist washcloths * Express milk as needed to relieve engorgement * Wear loose clothing Bottle Feeding: * May apply ice packs * For sore nipples: * Identify correct latch-on * Apply warm moist washcloths before and after nursing * Air dry nipples after nursing * May apply Lansinoh cream to nipples EPISIOTOMY/PERINEAL CARE: * Until bleeding stops, use your christina bottle after urinating * Change your pad frequently throughout the day * You may take sitz baths several times a day (fill your bathtub with warm water and soak for 20 minutes.) Do NOT bathe in the water * No tub baths until seen by your physician - You may shower ACTIVITY: * Rest as much as possible. * Do not exercise or lift anything heavier than your baby (such as laundry or other children.) * Avoid stairs or driving as much as possible. * Do not put anything into the vagina. No douching, tampons, or sexual activity until seen by physician. NOTIFY PHYSICIAN IF YOU HAVE ANY QUESTIONS OR IF ANY OF THE FOLLOWING SYMPTOMS OCCUR: * If your episiotomy or incision becomes red, swollen, or more painful than what you have experienced in the hospital. * If your vaginal bleeding becomes foul smelling. * If your vaginal bleeding becomes more heavy than a period or if your bleeding changes from pink to bright red. However, you may pass an occasional walnut-sized clot once or twice for the first week . * If you experience a sharp, shooting pain in you calves. * If you discover a hard, reddened area on your breast or if you experience flu-like symptoms. DIET: * Eat regular, well-balanced meals. * Drink plenty of fluids daily. If , drink to thirst. Patient Instructions: Vaginal Delivery (DC) Patient Language: Lithuanian Stand Alone Forms: General Discharge Information Follow-up/Referrals: Veun Grady MD [Physician] - Discharge Medications: New ibuprofen 800 mg tablet 800 mg PO TID Qty: 30 0RF acetaminophen 500 mg tablet 1,000 mg PO TID Qty: 60 0RF docusate sodium [Colace] 100 mg capsule 100 mg PO BID Qty: 90 0RF No Action No Home Medications Date of admission: 04/27/25 02:20 Primary Care Provider: UNKNOWN,DOCTOR Admitting Provider: Venu Grady Attending physician on admission: Venu Grady Condition: Stable
--- NOTE | 2025-04-29 06:28 | PM.OBPNVD ---
OB - PN: Subj Subjective Date/time seen: 04/28/25 1030 Patient comments: pain well controlled, tolerating diet and other (Decreasing lochia.) baby status: doing well and nursing well Maynard feeding status: exclusively breast feeding OB - PN: Obj Data Labs 04/28/25 04:21 OB - PN A/P Assessment and Plan (1) Vaginal delivery: Code(s): O80 - Encounter for full-term uncomplicated delivery Status: Acute Plan Plan: routine care Time Spent With Patient Time: Total time spent is greater than 50% in coordination of care (as documented) at patient's floor/unit and/or counseling patient: Exam Psych: Affect: normal affect Other: Abd: fundus firm below umbilicus, nontender Perineum: healing Ext: nontender
[2025-04-29 07:56] VITALS: BP 118/81; PULSE 98; RESP 19; TEMP 36.4; O2SAT 98
[2025-04-29] MEDS: IBUPROFEN 600 MG TABLET PO (08:54)
[2025-04-29] MEDS: DOCUSATE SODIUM 100 MG CAPSULE PO (08:54)
[2025-04-29] MEDS: MULTIVIT/MIN/PREN/FOL AC/IRON TABLET 1 TAB PO (08:54)
--- NOTE | 2025-04-29 09:05 | PM.OBDSVD ---
DS: Admitting Diagnosis Discharge Date 04/29/25 Admitting Diagnosis Active labor DS: Discharge Diagnosis Discharge Diagnosis (1) Normal vaginal delivery of second : Code(s): O80 - Encounter for full-term uncomplicated delivery Status: Acute OB - DS: Summary Hospital Course Hospital Course: She was admitted in labor. She had a vaginal delivery. She did well . She was ambulating well, tolerating regular diet. Baby was doing well. She was discharge to home on day 2. OB Procedures : Ultrasound OB Procedures Intrapartum: Spontaneous Vag Delivery OB Procedures: : None Peripartum Data Infant Delivery Method: Natural Vaginal Laceration Description: None Episiotomy description: None complications: none 1: Gender: Male Disposition of : home Status at Discharge Functional status at discharge: independent ambulation Overall status at discharge: patient is back to baseline Time Spent with Patient Time attestation: Total time spent providing and/or coordinating discharge services: Exam Const: General: cooperative, healthy appearing, comfortable and no acute distress Orientation/consciousness: patient oriented x3 Resp: Effort & Inspection: normal respiratory effort Auscultation: clear to auscultation bilaterally Cardio: Rate: regular rate GI: Inspection: non-distended GI Palp: No abdominal tenderness and Yes Soft to palpation Auscultation: normal bowel sounds : Other: fundus firm Skin: General skin exam: normal color Neuro: General: patient oriented x3 Extrem: General: normal to inspection Psych: Appearance: grossly normal Affect: normal affect Attitude: cooperative DS: Data Data Completed and Pending Pending studies at discharge: Pending at discharge 04/27/25 15:31 Surgical [PTH] Routine Labs on day of discharge: Labs from last 24 hours 04/28/25 04:21 Hgb 10.8 L Hct 35.1 L Discharge Plan Discharge Attending physician on discharge: Venu Grady Consulting providers: Perri Crespo Discharging Clinician: Kat Marley Anticipated Discharge Date/Time: 04/29/25 10:00 Patient Disposition: Home Activity: may shower and pelvic rest Diet: regular Patient Instructions: Vaginal Delivery (DC) Patient Language: Mongolian Stand Alone Forms: General Discharge Information Follow-up/Referrals: Venu Grady MD [Physician] - Discharge Medications: New ibuprofen 800 mg tablet 800 mg PO TID Qty: 30 0RF acetaminophen 500 mg tablet 1,000 mg PO TID Qty: 60 0RF docusate sodium [Colace] 100 mg capsule 100 mg PO BID Qty: 90 0RF No Action No Home Medications Date of admission: 04/27/25 02:20 Primary Care Provider: UNKNOWN,DOCTOR Admitting Provider: Venu Grady Attending physician on admission: Venu Grady Condition: Stable
== END 2025-04-29 11:10 | disposition home or self-care (01) | DRG 807 ==
LOC: ANHOB2 04-29 06:28 → ANHLDR 05-01 13:44 → ANHOB2 05-01 13:44
PROVIDERS: Obstetrics & Gynecology; Admitting Provider Student in an Organized Health Care Education/Training Program; Visit Provider Obstetrics & Gynecology
DX: O36.63X0 Maternal care for excessive fetal growth, third trimester, not applicable or unspecified (principal); Z37.0 Single live birth; O32.0XX0 Maternal care for unstable lie, not applicable or unspecified; O76 Abnormality in fetal heart rate and rhythm complicating labor and delivery; O66.0 Obstructed labor due to shoulder dystocia; O69.81X0 Labor and delivery complicated by cord around neck, without compression, not applicable or unspecified; O77.0 Labor and delivery complicated by meconium in amniotic fluid; Z3A.39 39 weeks gestation of pregnancy; Z87.891 Personal history of nicotine dependence
CPT/HCPCS: 36415; 85014; 85018; 85025; 86593; 86703; 86850; 86900; 86901; 88307; A9270; G0432; J2405; J2590; J2795; J7120

== ENCOUNTER 2025-08-04 15:33 | Emergency (ER) | payer OTHER, SELFPAY ==
--- OUTSIDE RECORDS SUMMARY | 2025-08-04 14:23 | XMS_ITS | Encounter Summary ---
Author Organization [facility] Address [address] [place] [address] Phone Care Team Providers Care Supervising Architect Name Role Phone Provider, None Primary Care Provider Unavailabl e Provider, None Unavailable Unavailable Reason for Visit * Reason Comments Rash Encounter Details Date Type Department Care Team (Late st Contact Info) Description 08/04/2025 2:23 PM CDT Emergency [facility] Emergency [address] [place] [address] Social History Tobacco Use Types Packs/Day Years Used Date Smoking Tobacco: Former Cigarettes Smokeless Tobacco: Never Alcohol Use Standard Drinks/Week Comments Not Currently 0 (1 standard drink = 0.6 oz pur e alcohol) Sexually Active Control Partners Comments Yes Male Comments Unknown Sex and Gender Information Value Date Recorded Sex Assigned at Not on file 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 Gender Identity Not on file Sexual Orientation Not on file documented as of this encounter Last Filed Vital Signs Vital Sign Reading Time Taken Comments Blood Pressure 128/87 08/04/2025 3:06 PM CDT Pulse 88 08/04/2025 3:06 PM CDT Temperature 36.6 C (97.8 F) 08/04/2025 3:06 PM CDT Respiratory Rate 16 08/04/2025 3:06 PM CDT Oxygen Saturation 100% 08/04/2025 3:06 PM CDT Inhaled Oxygen Concentration - - Weight 65.8 kg (145 lb) 08/04/2025 3:06 PM CDT Height 162.6 cm (5' 4) 08/04/2025 3:06 PM CDT Body Mass Index 24.89 08/04/2025 3:06 PM CDT documented in this encounter ED Notes * Massiel Hoffman RN - 08/04/2025 3:06 PM CDT Patient to ED for evaluation of rash to chest that she believes is ringworm, but doesn't know why she thinks it's ringworm. Patient states she noticed it yesterday, but played it off as a sweat rash for additional 2 days. documented in this encounter Plan of Treatment Not on file documented as of this encounter Visit Diagnoses Not on filedocumented in this encounter Care Teams Supervising Architect Relationship Specialty Start Date End Date Provider, None [place] PCP - General 12/08/24 Provider, None [place] 12/08/24 documented as of this encounter
[2025-08-04 15:42] VITALS: BP 123/75; PULSE 81; RESP 16; TEMP 36.2; O2SAT 100
--- OUTSIDE RECORDS SUMMARY | 2025-08-04 16:02 | XMS_ITS | Clinical Summary ---
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 Gender Identity Not on file Sexual Orientation [...] n, Derrick cameron MD Complications:None Delivery Location:This [facility] ([facility]) Last Filed Vital Signs [...] 1997 DTaP/Tdap/Td Vaccine (1 - Tdap) 2008 Hepatitis B Screening 2015 Regular Well Visit/Exam 18-64 2015 Pneumococcal vaccine <65 (1 of 2 - PCV) 2016 Varicella Vaccines (1 of 2 - 13+ 2-dose series) 2021 HPV Vaccines (1 - 3-dose SCDM series) 2024 Influenza Vaccine (#1) 2025 08/27/2021 Insurance [facility] CHOICE PLUS Advance Directives For more information, please contact: [phone] * Full Code (Latest Code Status on File) Date Activated Date Inactivated Comments 11/09/2021 1:03 AM 11/10/2021 7:23 PM * Full Code Date Activated Date Inactivated Comments 11/08/2021 5:52 AM 11/09/2021 1:03 AM Full CPR i n case of cardiopulmonary arrest Care Teams Tool And Die Maker Level Five Relationship Specialty Start Date End Date No, Physician PCP - General 03/16/21 Derrick Abdalla MD [address] [place] [address] [address] Parasitologist Obstetrics and Gynecology 11/10/21
--- OUTSIDE RECORDS SUMMARY | 2025-08-04 16:02 | XMS_ITS | Clinical Summary ---
Author Organization [facility] Address [address] [place] [address] Care Team Providers Care Public Health Advisor Name Role Phone Provider, None Primary Care Provider Unavailabl e Provider, None Unavailable Unavailable Allergies Active Allergy Reactions Criticality Noted Date Comments Isopropyl Alcohol Hives 11/25/2017 Medications No known medications Active Problems No known active problems Encounters Date Type Department Care Team Description 08/04/2025 2:23 PM CDT Emergency [facility] [address] [place] [address] 08/04/2025 Travel from Last 3 Months Immunizations Immunization Administration Dates Next Due Influenza [...] on file 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 Gender Identity Not on file Sexual Orientation [...] Mass Index 24.89 08/04/2025 3:06 PM CDT Plan of Treatment Health Maintenance Due Date Last Done Comments Hepatitis C Virus (HCV) Screening 1997 TdaP Immunization 1997 Hepatitis B Immunization (1 of 3 - 19+ 3-dose series) 2016 Pap Smear 2018 Human Papillomavirus (HPV) Immunization (1 - 3-dose SCDM series) 2024 Influenza Immunization (#1) 2025 08/27/2021 SARS-COV-2 Immunization ( - season) 2025 Respiratory Syncytial Virus (RSV) Immunization (Adult) (1 - 1-dose 75+ series) 2072 Meningococcal Immunization (ACWY) Aged Out No longer eligible based on patient's age to complete this topic Pneumococcal Immunization Combined Aged Out No longer eligible based on patient's age to complete this topic Rotavirus Immunization Aged Out No lo nger eligible based on patient's age to complete this topic Insurance [facility] MEDICAID [place] Care Teams Public Health Advisor Relationship Specialty Start Date End Date Provider, None [place] PCP - General 12/08/24 Provider, None [place] 12/08/24
--- OUTSIDE RECORDS SUMMARY | 2025-08-04 16:02 | XMS_ITS | Clinical Summary ---
Author Organization [facility] Address [address] [place] [address] Care Team Providers Care Ios Architect Name Role Phone Unavailable Primary Care Provider Unavailabl e Source Comments [facility],non-owned Affiliates and Associated Physician Practices is amultiple site organization consisting of ambulatory clinics and hospital sitesin [place], [place], [place] and [place]. This disclosure is being madepursuant to the Care Everywhere program and may not contain all information available regarding this patient. Last updated 18.[facility] Health Allergies No known active allergies Social History Tobacco Use Types Packs/Day Years Used Date Smoking Tobacco: Never Assessed Comments No Sex and Gender Information Value Date Recorded [...] Health Maintenance Due Date Last Done Comments HIV SCREENING 2012 HEPATITIS C SCREENING 12/03/2015 DTAP/TDAP/TD VACCINES (1 - Tdap) 2016 HEPATITIS B VACCINE (1 of 3 - 19+ 3-dose series) 2016 PAP SMEAR 2018 COVID-19 VACCINE ( - 2023-2 5 season) 2024 DEPRESSION SCREENING 11/23/2024 HPV VACCINE (1 - 3-dose SCDM series) 2024 INFLUENZA VACCINE (#1) 2025 ZOSTER VACCINE (1 of 2) 2047 HIB VACCINE Aged Out No longer eligi [...] patient's age to complete this topic Insurance [facility] SELF PAY NO INSURANCE Member Subscriber Plan / Payer (Ef fective for All Dates) Name:Andie Guevara Member ID:Not on file Relation to Subscriber:Not on file Name:ANDIE GUEVARA Subscriber ID:Not on file (Home) Address: [address] [place] [address] Payer ID:Not on file Group ID:Not on file Type:Self Pay Address: [place], [place]
--- OUTSIDE RECORDS SUMMARY | 2025-08-04 16:02 | XMS_ITS | Encounter Summary ---
Author Organization [facility] Care Team Providers Care Dean Of Instruction Name Role Phone Provider, None Primary Care Provider Unavailabl e Provider, None Unavailable Unavailable Encounter Details Date Type Department Care Team (Latest Contact Info) Description 08/04/2025 Travel Social History Tobacco Use Types Packs/Day Years Used Date Smoking Tobacco: Former Cigarettes Smokeless Tobacco: Never Alcohol Use Standard Drinks/Week Comments Not Currently 0 (1 standard drink = 0.6 oz pur e alcohol) Sexually Active Control Partners Comments Yes Male Comments Unknown Sex and Gender Information Value Date Recorded Sex Assigned at Not on file 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
--- NOTE | 2025-08-04 16:15 | ED_ITS ---
HPI - Skin/Abscess/Foreign Bdy General Chief complaint: Skin/Abscess/Foreign Body Stated complaint: chest rash Time Seen by Provider: 08/04/25 16:15 Source: patient Mode of arrival: ambulatory Limitations: no limitations History of Present Illness HPI narrative: 29-year-old female presented for complaint of red itchy rash in between breast for about 2 days. Has not applied anything to the site. Says today she noted green drainage. Denies pain. Any other skin changes. Denies lip, tongue, or throat swelling, shortness of breath or wheezing. Denies changes to soap, detergent, lotion, or any other exposures. pt is currently breast feeding. Related Data Allergies Allergy/AdvReac Type Severity Reaction Status Date / Time No Known Allergies Allergy Verified 08/04/25 15:50 Review of Systems Review of Systems: CONSTITUTIONAL: Denies body aches, fever, chills, or sweats. EYES: Denies visual changes, redness, or discharge. ENT: Denies rhinorrhea, congestion CARDIOVASCULAR: Denies chest pain, palpitations, or edema. RESPIRATORY: Denies cough or dyspnea. GASTROINTESTINAL: Denies abdominal pain, nausea, vomiting, or diarrhea. SKIN: reports itchy rash on chest MUSCULOSKELETAL: Denies back pain, joint pain, or myalgia. NEUROLOGIC: Denies headache, numbness, tingling, or weakness. [facility] Past Medical History Medical History Heart palpitations Family history of supraventricular tachycardia H/O headache Anxiety 20 weeks gestation of Family History Family History Mother Depression Mother Thyroid disease Father Alcohol abuse Depression Heart disease Hypertension Grandparent Hypertension Social History Social History Smoking status: Former smoker Second hand tobacco smoke exposure: No Alcohol intake: former Alcohol use details: is former social alcohol use Substance use: former Substance use type: does not use Do You Feel Safe in your Home?: Yes Lack of Transportation: No Lack of Food: Never True Current Housing: I Have Housing Concerned About Future Housing: No Difficulty Paying Gas/Electric Bills: No Difficulty Paying for Meds: No Currently Unemployed: No Education: High School Diploma/GED Difficulty w/ Childcare or Family Care: No Living arrangements: with family Gender identity (if verbalized by the patient): Female Spiritual care concerns: No Comments At time of signature, I have reviewed and agree with nursing past medical, surgical, social and family history unless otherwise noted. Please see nursing chart for further information. There is no relevant family history pertinent to the presenting complaint Exam Narrative: GENERAL: Well-appearing EYES: conjunctivae clear, and EOMI. ENT: Mucous membranes moist. Oropharynx without edema, erythema or lesions. NECK: Supple. No lymphadenopathy CHEST: Clear to auscultation. HEART: Regular rate and rhythm. SKIN: Warm, dry. mid chest with approx 2.5cm area of erythematous papules c/w fungal rash NEURO: Alert and oriented x3. Course Course Emergency Course: Patient is aware of diagnosis, understands and agrees to treatment plan. Antic ipatory guidance given. Patient agrees to follow-up as directed and is aware of reasons to seek care at the emergency department. Portions of this record may have been created with voice recognition software Level of Care: Express Care Visit Vital Signs Vital signs: Vital Signs Temperature 97.2 F L 08/04/25 15:42 Pulse Rate 81 08/04/25 15:42 Respiratory Rate 16 08/04/25 15:42 Blood Pressure 123/75 08/04/25 15:42 Pulse Oximetry 100 08/04/25 15:42 Oxygen Delivery Room Air 08/04/25 15:42 Temperature 97.2 F L 08/04/25 15:42 Pulse Rate 81 08/04/25 15:42 Respiratory Rate 16 08/04/25 15:42 Blood Pressure 123/75 08/04/25 15:42 Pulse Oximetry 100 08/04/25 15:42 Oxygen Delivery Room Air 08/04/25 15:42 Reviewed MDM - Skin/Abscess/Foreign Bdy MDM Narrative Medical decision making narrative: Discussed physical exam findings consistent with fungal rash, reviewed prescriptions. Advised supportive measures and signs/symptoms to go to the ER. Pt is appropriate for outpt treatment and f/u. Differential Diagnosis Differential diagnosis: Likely abscess of skin or subcutaneous tissue, viral exanthem, dermatophytosis, urticaria, herpes zoster, cellulitis, eczema, insect bites, impetigo and contact dermatitis Discharge Plan Discharge Clinical Impression: Dermatitis Patient Disposition: Home Condition: Stable Instructions: Antibiotic Form, Skin Yeast Infection (ED) Additional Instructions: Wash the area with gentle soap and water only. 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
== END 2025-08-04 16:29 | disposition home or self-care (01) ==
PROVIDERS: Emergency Provider Nurse Practitioner Family
DX: L30.9 Dermatitis, unspecified (principal); Z87.891 Personal history of nicotine dependence
CPT/HCPCS: 99213; G0463